=== PATIENT | female | born 1980 | race Caucasian/White ===

== ENCOUNTER 2017-02-12 06:39 | Day surgery (SDC) | payer OTHER ==
[2017-02-12] MEDS ORDERED: DIPRIVAN 1% 100 ML ONE (06:45)
[2017-02-12] MEDS ORDERED: LR 1,000 ML ONE (07:25)
[2017-02-12] MEDS ORDERED: MYLICON DROPS (DOSE) MISC ONE (10:21)
[2017-02-12] MEDS ORDERED: DIPRIVAN 1% 50 ML ONE (11:38)
[2017-02-12] MEDS ORDERED: ROBINUL ONE (11:40)
[2017-02-12 12:24] VITALS: BP 120/63
--- NOTE | 2017-02-17 04:02 | OPERATIVE NOTE ---
PROCEDURE DATE: 02/12/2017 REFERRING PHYSICIAN: Michael Black MD. INDICATIONS FOR THE PROCEDURE: 1. Dysphagia. 2. Nausea. 3. Epigastric pain. 4. Change in bowel habits. PROCEDURE PERFORMED: Esophagogastroduodenoscopy. CONSENT: Informed consent was obtained from the patient prior to the procedure. The risks, benefits, and alternatives were discussed. MEDICATIONS: The patient received monitored anesthesia care. PERFORMING PHYSICIAN: Carleen Baez MD. ASSISTANTS: 1. [facility] 2. Nancy Lemus RN. 3. Sean Lyman CRNA. 4. Lul Huffman MD (anesthesia). COMPLICATIONS: There were no complications. ESTIMATED BLOOD LOSS: Less than 1 mL. SPECIMENS REMOVED: None. FINDINGS: After sedation was achieved, the upper endoscope was inserted to the 2nd portion of the duodenum. The hypopharynx appeared endoscopically normal. The tubular esophagus appeared normal to the distal esophagus. In the distal esophagus, there were linear erosions that spanned from 39- 40 cm consistent with grade B erosive esophagitis. At the GE junction, there was a large erosion. The GE junction was measured at 40 cm from the incisors. There was a hiatal hernia from 40-45 cm. In the gastric lumen, there was nonerosive gastritis with retained bile. After the bile was evacuated, there was a 5-10 mm superficial, whitish based ulcer in the fundus with a hyperemic edge that remains intact. On forward view, the pylorus appeared endoscopically normal. In addition, there were multiple fundic gland polyps that remained intact. On forward view, the pylorus appeared endoscopically normal, as did the 1st and 2nd portion of the duodenum. After the exam was complete, the lumen was decompressed and the scope was removed without incident. IMPRESSION: 1. Grade B erosive esophagitis. 2. Hiatal hernia. 3. Nonerosive gastritis. 4. Superficial gastric ulcer. 5. Fundic gland polyps. RECOMMENDATION: 1. We will discontinue the Zantac and begin omeprazole 40 mg daily. 2. She had evidence of gastric stasis. Therefore, I will obtain a gastric emptying study. 3. If there is no improvement in her clinical symptoms, I will consider a course of Carafate 1 g 4 times a day for 12 weeks and then stop. 4. We will proceed with a colonoscopy as previously scheduled.
--- NOTE | 2017-02-17 04:09 | OPERATIVE NOTE ---
PROCEDURE DATE: 02/12/2017 REFERRING PHYSICIAN: Michael Black MD. INDICATION FOR PROCEDURE: 1. Change in bowel habits. 2. Left lower quadrant pain. 3. Chronic constipation. PROCEDURE PERFORMED: 1. Colonoscopy with polypectomy. 2. Colonoscopy with ablation. CONSENT: Informed consent was obtained from the patient prior to the procedure. The risks, benefits, and alternatives were discussed. MEDICATION: The patient received monitored anesthesia care. PERFORMING PHYSICIAN: Carleen Baez MD. ASSISTANTS: 1. [facility] 2. Nancy Lemus RN. 3. Sean Lyman CRNA. 4. Lul Huffman MD (anesthesia). COMPLICATIONS: There were no complications. ESTIMATED BLOOD LOSS: Less than 1 mL. CECAL INTUBATION TIME: 11 minutes. WITHDRAWAL TIME: 32 minutes. PREP QUALITY: Poor. FINDINGS: After the EGD was performed, the pediatric colonoscope was inserted to the cecum. The ileocecal valve and appendiceal orifice appeared endoscopically normal. In the ascending colon, there were rare diverticula. In the transverse colon, the colonic mucosa appeared grossly normal. At 60 cm, there was a 5-10 mm polyp removed by snare cautery. At 45 cm, there was a 5-10 mm removed by snare cautery. At 25 cm, there were 6 polyps removed by snare cautery. They ranged in size from 5-10 mm. There were 3 polyps that were ablated. They were also 3-5 mm in size. In the rectum, there were 4 polyps that were 5-10 mm in size that were removed by snare cautery. In the upper rectum, there were grade 3 internal hemorrhoids. On retroflexed view, there were medium external hemorrhoids. After the exam was complete, the lumen was decompressed and the scope was removed without incident. IMPRESSION: 1. Multiple colon polyps. 2. Rare diverticulosis. 3. Grade 3 internal hemorrhoids. 4. Medium external hemorrhoids. 5. Poor bowel prep. RECOMMENDATION: 1. Await biopsy results. 2. Repeat colonoscopy in 6 months. She may require a 2-day bowel prep. 3. Continue Levsin as needed for spasms consistent with irritable bowel syndrome that was initiated in clinic. 4. Should begin Preparation-H hemorrhoidal suppository 1 per rectum b.i.d. for 7 days. If the symptoms persist, we will consider a steroid suppository. 5. We will have the patient return to clinic in 6 weeks to assess interval progress.
== END 2017-02-12 12:30 | disposition home or self-care (01) ==
LOC: ENDO 06:39
PROVIDERS: ATTEND Internal Medicine Gastroenterology
DX: R13.12 Dysphagia, oropharyngeal phase (principal); R14.0 Abdominal distension (gaseous); K59.01 Slow transit constipation; R19.7 Diarrhea, unspecified; E11.9 Type 2 diabetes mellitus without complications; I10 Essential (primary) hypertension; G40.909 Epilepsy, unspecified, not intractable, without status epilepticus; K31.7 Polyp of stomach and duodenum; K29.70 Gastritis, unspecified, without bleeding; D12.3 Benign neoplasm of transverse colon; K20.8 Other esophagitis; K62.1 Rectal polyp; K44.9 Diaphragmatic hernia without obstruction or gangrene; K57.30 Diverticulosis of large intestine without perforation or abscess without bleeding; K64.4 Residual hemorrhoidal skin tags; K64.2 Third degree hemorrhoids; K25.9 Gastric ulcer, unspecified as acute or chronic, without hemorrhage or perforation; E03.9 Hypothyroidism, unspecified; Z68.42 Body mass index [BMI] 45.0-49.9, adult; E66.01 Morbid (severe) obesity due to excess calories; R10.32 Left lower quadrant pain; G89.29 Other chronic pain; M54.9 Dorsalgia, unspecified; M19.90 Unspecified osteoarthritis, unspecified site; M79.7 Fibromyalgia; J45.909 Unspecified asthma, uncomplicated; G47.33 Obstructive sleep apnea (adult) (pediatric); F31.9 Bipolar disorder, unspecified; F41.0 Panic disorder [episodic paroxysmal anxiety]; Z79.899 Other long term (current) drug therapy; Z79.891 Long term (current) use of opiate analgesic; F17.290 Nicotine dependence, other tobacco product, uncomplicated
CPT/HCPCS: 88305; J7120